=== PATIENT | male | born 1945 | race Caucasian/White ===

== ENCOUNTER 2019-05-27 15:59 | Inpatient (IN) | payer OTHER ==
[~2019-05-27] VITALS: Ht 175.3 cm; Wt 72.6 kg
[2019-05-27] MEDS ORDERED: SERTRALINE HCL100 MG (16:42)
[2019-05-27] MEDS ORDERED: PROTONIX40 M1 (16:43)
[2019-05-27] MEDS ORDERED: JANUVIA25 MG (16:43)
[2019-05-27] MEDS ORDERED: PLAVIX75 MG (16:44)
[2019-05-27] MEDS ORDERED: DIOVAN320 MG (16:44)
[2019-05-27] MEDS ORDERED: ATORVASTATIN CA20 MG (16:44)
[2019-05-27] MEDS ORDERED: TOPROL XL50 M1 (16:45)
--- NOTE | 2019-05-27 16:45 | NUR ---
PTE SE RECIBE POR FEVER Y DESORIENTADO REFIERE PARAMEDICO Y FAMILIAR.
[2019-05-27] MEDS ORDERED: XARELTO20 MG (17:19)
[2019-05-27] MEDS ORDERED: CLONAZEPAM0.5 MG (17:20)
[2019-05-27] MEDS ORDERED: TENAZEPAN (17:21)
== END 2019-06-03 18:50 | disposition home or self-care (01) | DRG 592 ==
LOC: ER 15:59 → SEC-K 20:47 → MEDI 20:47 → MEDJ 05-29 11:37
PROVIDERS: ADMIT Internal Medicine
PROC: B44GZZZ Ultrasonography of Left Lower Extremity Arteries (ICD-10-PCS; principal; 2019-05-27)
PROC: B54MZZZ Ultrasonography of Right Upper Extremity Veins (ICD-10-PCS; 2019-05-27)
PROC: B246ZZZ Ultrasonography of Right and Left Heart (ICD-10-PCS; 2019-05-30)
PROC: 4A12X4Z Monitoring of Cardiac Electrical Activity, External Approach (ICD-10-PCS; 2019-05-31)
PROC: B020ZZZ Computerized Tomography (CT Scan) of Brain (ICD-10-PCS; 2019-05-31)
PROC: BW4GZZZ Ultrasonography of Pelvic Region (ICD-10-PCS; 2019-06-02)
DX: L98.419 Non-pressure chronic ulcer of buttock with unspecified severity (principal); A41.9 Sepsis, unspecified organism; N39.0 Urinary tract infection, site not specified; I69.354 Hemiplegia and hemiparesis following cerebral infarction affecting left non-dominant side; G24.8 Other dystonia; G45.0 Vertebro-basilar artery syndrome; L97.818 Non-pressure chronic ulcer of other part of right lower leg with other specified severity; I73.89 Other specified peripheral vascular diseases; E86.0 Dehydration; I87.2 Venous insufficiency (chronic) (peripheral); I69.398 Other sequelae of cerebral infarction; B95.61 Methicillin susceptible Staphylococcus aureus infection as the cause of diseases classified elsewhere; B96.1 Klebsiella pneumoniae [K. pneumoniae] as the cause of diseases classified elsewhere; I10 Essential (primary) hypertension

== ENCOUNTER 2019-08-13 00:19 | Inpatient (IN) | payer OTHER ==
[~2019-08-13] VITALS: Ht 160 cm; Wt 63.5 kg
[~2019-08-13 00:19] MED LIST: ATORVASTATIN CA20 MG; CLONAZEPAM0.5 MG; DIOVAN320 MG; JANUVIA25 MG; PLAVIX75 MG; PROTONIX40 M1; SERTRALINE HCL100 MG; TENAZEPAN; TOPROL XL50 M1; XARELTO20 MG
[2019-08-13] MEDS ORDERED: RESTORIL15 M1 PO (00:23)
--- NOTE | 2019-08-13 00:32 | NUR ---
PACIENTE ALERTA Y ORIENTADO EN PERSONA, EN COMPANIA DE RINCON HIJA QUIEN REFIERE FIEBRE DESDE HACE DOS MCCURDY. HIJA TAMBIEN REFIERE ORINA "COLOR COCA COLA". PACIENTE LLEGO CANALIZADO EN BRAZO RT CON ANGIO # 20 RECIBIENDO 0.95 NSS A KVO. VENOPUNCION PATENTE Y CLARY DE S/S DE FLEBITIS E INFILTRACION.
--- NOTE | 2019-08-13 01:30 | NUR ---
PACIENTE ALERTA, SE ORIENTA A HIJA SOBRE ORDENES MEDICAS, REFIERE ENTENDER. SE COLECTAN MUESTRAS DE TOMAS Y SE ADMINISTRAN MEDICAMENTOS. SE CAMBIA LINEA PRIMARIA CON LA QUE VINO PACIENTE Y SE COLOCA SALINE LOCK EN CANALIZACION QUE REALIZARON PARAMEDICOS. VENOPUNCION PATENTE. SE HACE ENTREGA DE ENVASE CERRADO A HIJA PARA UA Y UC CON INSTRUCCIONES PREVIAS.
--- NOTE | 2019-08-13 07:59 | NUR ---
SE RECIBE PTE ALERTA Y CONCIENTE POR 3 EN COMPANIA DE RINCON FAMILIAR PTE EN JENNI CON BARANDAS ELEVADA Y TIMBRE ACCESIBLE PTE NO PRESENTA DOLOR AL MOMENTO, PTE SE MANTIENE EN OBSERVACION Y BAJO TRATAMIENTO. SE OBSERVA VENOPUNCION PATENTE Y CLARY DE EDEMA.
--- NOTE | 2019-08-13 13:09 | NUR ---
AL MOMENTO DE OFRECER MONIQUE SE ENCUENTRA PTE DESORIENTADO, SE LULU TEMPERATURA 102.[address] EDWARD EL CUAL EVALUA PTE. SE ADMINISTRA MEDICAMENTO, BAJO MEDIDAS ASEPTICAS, RICK ORDEN MEDICA. PTE SIN REACCION ADVERSA AL MOMENTO. SE ASISTE PTE EN SAHRON NECESIDADES Y SE REEMA COMODIDAD.SE MANTIENE BAJO OBSERVACION POR CAMBIOS SIGNIFICATIVOS.
== END 2019-08-17 13:10 | disposition home health service (06) | DRG 689 ==
LOC: ER 00:19 → SEC-K 13:09 → MEDJ 18:49
PROVIDERS: ADMIT Internal Medicine
PROC: BT4JZZZ Ultrasonography of Kidneys and Bladder (ICD-10-PCS; principal; 2019-08-13)
DX: N10 Acute pyelonephritis (principal); A41.9 Sepsis, unspecified organism; I69.354 Hemiplegia and hemiparesis following cerebral infarction affecting left non-dominant side; I10 Essential (primary) hypertension; N28.1 Cyst of kidney, acquired; B96.29 Other Escherichia coli [E. coli] as the cause of diseases classified elsewhere; B96.4 Proteus (mirabilis) (morganii) as the cause of diseases classified elsewhere; R31.0 Gross hematuria